=== PATIENT | female | born 1970 | race Caucasian/White ===

== ENCOUNTER 2020-12-24 10:59 | Emergency (ER) | payer BC ==
[2020-12-24 11:17] VITALS: BP 136/84; PULSE 90; RESP 18; TEMP 98
[2020-12-24] MEDS ORDERED: MORPHINE SULFATE 4 MG/ML SYRINGE IM STA (11:33)
--- NOTE | 2020-12-24 12:05 | XR ---
EXAMINATION TYPE: XR ankle complete RT DATE OF EXAM: 12/24/2020 CLINICAL HISTORY: Fall TECHNIQUE: Frontal, lateral and oblique images of the right ankle are obtained. COMPARISON: No prior similar studies are available for comparison. FINDINGS: The ankle mortise is not symmetric and there is a fracture of the distal fibula beginning at the leve l of the tibial plafond and. Bony fragments are seen adjacent to the medial malleolus. There is exten sive surrounding soft tissue swelling and ankle joint effusion. Calcaneal spur is noted. IMPRESSION: The ankle mortise is not symmetric and there is a fracture of the distal fibula beginning at the leve l of the tibial plafond and. Bony fragments are seen adjacent to the medial malleolus. There is exten sive surrounding soft tissue swelling and ankle joint effusion.
--- NOTE | 2020-12-24 12:06 | XR ---
Right leg HISTORY: Trauma and pain Frontal and lateral views of the right leg on 4 images There is an oblique fracture of the distal right fibula within the metadiaphysis with slight displace ment. There is some slight lateral subluxation of the talus in relation to the distal tibia. Small os sific density may be present along the medial malleolus laterally. There is soft tissue swelling pres ent. There is a plantar calcaneal spur. IMPRESSION: Fracture subluxation as described.
--- NOTE | 2020-12-24 12:06 | XR ---
EXAMINATION TYPE: XR foot complete RT DATE OF EXAM: 12/24/2020 CLINICAL HISTORY: Fall TECHNIQUE: Frontal, lateral, and oblique images of the right foot are obtained. COMPARISON: None FINDINGS: There is a distal fibular fracture. Ankle joint effusion is present. Calcaneal spur is noted. IMPRESSION: There is a distal fibular fracture. Ankle joint effusion is present.
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
[2020-12-24] MEDS ORDERED: ACET/COD 300 MG/30 MG STARTER PACK 6 TAB BTL PO STA (13:19)
== END 2020-12-24 13:23 | disposition home or self-care (01) ==
LOC: EC 10:59
DX: S82.891A Other fracture of right lower leg, initial encounter for closed fracture (principal); F32.9 Major depressive disorder, single episode, unspecified; X58.XXXA Exposure to other specified factors, initial encounter; Y92.814 Boat as the place of occurrence of the external cause
CPT/HCPCS: 73590; 73610; 73630; 96372; 29515; 99283; J2270

== ENCOUNTER → 2021-02-26 | Outpatient (CLI) | payer BC ==
--- NOTE | 2021-02-26 14:48 | XR ---
EXAMINATION TYPE: XR ankle limited RT DATE OF EXAM: 02/26/2021 COMPARISON: 12/24/2020 HISTORY: Status post ORIF FINDINGS: Two views of the ankle demonstrate the ankle mortise to be intact and symmetric. Postsurgical change appears in near-anatomic alignment. Calcaneal spur noted. IMPRESSION: 1. Postoperative change in near anatomic alignment.
== END | disposition home or self-care (01) ==
LOC: RADXRMAIN 13:47
PROVIDERS: ATTEND Physician Assistant
DX: Z47.89 Encounter for other orthopedic aftercare (principal); M77.31 Calcaneal spur, right foot

== ENCOUNTER 2021-03-06 11:16 | Day surgery (SDC) | payer BC ==
[2021-03-04 14:52] VITALS: BMI 25.8
[~2021-03-06 11:16] MED LIST: DEXAMETHASONE SOD PHOSPHATE 4 MG/ML 1 ML VIAL IV ONE; LACTATED RINGERS 1,000 ML IV SCH; LIDOCAINE 1% (10MG/ML) FOR IV START INTRADERMA PRN; ONDANSETRON 4 MG/2 ML VIAL IVP ONE; SCOPOLAMINE 1.5MG/72HR PATCH TRANSDERM ONE; ceFAZolin 1,000 MG in SODIUM CHLORIDE 0.9% IRRIGATIO 1,000 ML IRRIGATION PRN
[2021-03-06 12:06] VITALS: RESP 16
[2021-03-06] MEDS ORDERED: MIDAZOLAM 2 MG/2 ML VIAL IV ONE (13:35)
[2021-03-06] MEDS ORDERED: PROPOFOL 10 MG/ML 20 ML VIAL IV ONE (14:08)
[2021-03-06] MEDS ORDERED: fentaNYL (PF) 50 MCG/ML 2 ML AMP ONE (14:08)
[2021-03-06] MEDS ORDERED: LIDOCAINE 1% INJ 10MG/ML (20 ML MDV) ONE (14:08)
[2021-03-06] MEDS ORDERED: MIDAZOLAM 2 MG/2 ML VIAL ONE (14:08)
[2021-03-06] MEDS ORDERED: BUPIVACAINE (PF) 0.25% 30 ML VIAL SQ ONE (14:10)
[2021-03-06] MEDS ORDERED: HYDROmorphone 0.5 MG/0.5 ML SYRINGE IVP PRN (14:38)
[2021-03-06] MEDS ORDERED: HYDROcodone/APAP 5-325MG 1 EACH TAB PO PRN (14:38)
[2021-03-06] MEDS ORDERED: BENZOCAINE/MENTHOL LOZENG 1 EACH LOZENGE MUCOUS MEM PRN (14:38)
[2021-03-06] MEDS ORDERED: ONDANSETRON 4 MG/2 ML VIAL IVP PRN (14:38)
--- NOTE | 2021-03-06 14:49 | P.OP ---
Date of Procedure: 03/06/21 Preoperative Diagnosis: Irritating hardware right ankle status post open reduction internal fixation, retained syndesmotic screws right ankle status post open reduction internal fixation for fracture with syndesmotic injury Postoperative Diagnosis: Same Anesthesia: MAC Pathology: none sent Condition: stable Description of Procedure: BRIEF OPERATIVE NOTE Preoperative Diagnosis: Irritating hardware right ankle status post open reduction internal fixation, retained syndesmotic screws right ankle status post open reduction internal fixation for fracture with syndesmotic injury Postoperative Diagnosis: Same Procedure: Removal of deep hardware right ankle with removal of syndesmotic screws and distal fibula screw Surgeon: Dr. Elena Informatic[employer] Mdm Architect: Chad Dickerson is present throughout the entire the case persistence during positioning, dissection, exposure, visualization, and all crucial elements of the case as well as closure. Anesthesia: General anesthesia Estimated blood loss: Less than 10 mL Tourniquet time: None Specimen: None Complications: None apparent Components implanted: We removed 3 screws from her right ankle, 2 syndesmotic screws and one distal fibula screw which was irritating for her OPERATIVE INDICATIONS The patient had an injury approximately 3 months ago ago when she slipped and fell . She had immediate pain and swelling in her right ankle. She had not had any pain or issues prior to her fall. She underwent open reduction internal fixation due to a displaced distal fibula fracture and syndesmotic injury. She went on to have good healing at her distal fibula and that her syndesmosis and we plan to take out this and his medical screws for her. She is also having significant irritation at the screw heads particularly at the distal most screw head at the fibula. I discussed with her the fact to that removing the hardware may not alleviate symptoms. We will hardware with prevent further problems with the screw sites themselves at the syndesmotic screws. She is interested in having the screws removed. I discussed the risk of bleeding risk and infection risk and need for further surgery risk of decreased loss of motion loss function malunion nonunion hardware failure nerve damage as well as, occasions with surgery were explained. I answered her questions best my ability and she elected proceed with surgical intervention. OPERATIVE SUMMARY After discussing all the risks, patient alternatives and benefits at length, the patient elected to proceed with surgical intervention, signed informed consent, and presented for their procedure. The patient was seen and examined in the preoperative holding area and the surgical site was marked. The patient was given antibiotics and brought to the operating room. The patient was sedated and intubated by anesthesia in standard fashion. The patient was positioned on to the operating room table in a supine position with a pad under her right hip. We were careful to pad any bony prominences and pressure points. We were careful to maintain the patient's cervical spine and good neutral alignment and position throughout. We used C-arm machines to establish union fluoroscopic guidance in AP and lateral positions. We were able to localize the fractures appropriately. The patient was prepped and draped in a normal standard fashion. An appropriate timeout and keystone protocol performed. We were able to proceed with the surgery. The local wound area was infiltrated with local anesthetic. An incision was made over the lateral aspect of the ankle utilizing the prior incision at the distal aspect of the incision. I was able to easily identify the screw heads. The distal most screw was somewhat prominent and was able to be removed examined and found be in total. This significantly decrease the prominence of the hardware at the site. We also identify the syndesmotic screws 2 and they were removed in total. The syndesmosis was checked under live fl uoroscopy and there is no evidence of widening of the syndesmosis or ankle mortise. The remaining hardware is left intact. Was found to be stable. This was confirmed with C-arm guidance. I performed medial and lateral varus and valgus stress at the ankle after fixation was performed and there is no evidence of any widening or displacement of the syndesmosis or the ankle mortise. I do not feel we needed any further fixation. I felt is okay to remove the syndesmotic screws appropriately. We were able to proceed with closure. Deep layers were closed with 2-0 Vicryl subcu tissues closed 2-0 Vicryl and skin was closed with 4-0 nylon. The wound was cleaned and dried and dressed with the appropriate dressing. The patient was gently rolled back onto their hospital bed being careful to maintain their cervical spine and good neutral alignment and position. They were woken up by anesthesia, extubated, and brought to the recovery room in good stable condition. The patient will be able to be discharged from the hospital after appropriate observation due to and for appropriate postoperative care, medical management and monitoring. We will continue to follow them closely about the postoperative course. a plan see her back in the office in approximately 1 week's time or sooner if she is having problems.
[2021-03-06] MEDS: HYDROmorphone 0.5 MG/0.5 ML SYRINGE IVP PRN ×2 (15:01→15:12)
[2021-03-06 15:04] VITALS: TEMP 96.8
[2021-03-06 16:03] VITALS: BP 172/97; PULSE 77
--- NOTE | 2021-03-06 19:15 | FL ---
Fluoroscopy HISTORY: Hardware removal 1 seconds fluoroscopy time supplied to the referring clinician. 2 intraoperative C-arm images docume nt the procedure. See dictated report from orthopedic surgery.
[2021-03-07] MEDS ORDERED: DULoxetine HCL 60 MG CAPSULE.DR PO SCH (09:00)
[2021-03-07] MEDS ORDERED: MULTIVITAMINS, THERA 1 EACH TAB PO SCH (09:00)
[2021-03-07] MEDS ORDERED: CHOLECALCIFEROL 10 MCG (400 IU) TABLET PO SCH (09:00)
== END 2021-03-06 16:17 | disposition home or self-care (01) ==
LOC: OR 11:16
PROVIDERS: ATTEND Orthopaedic Surgery Orthopaedic Surgery of the Spine
DX: S82.891D Other fracture of right lower leg, subsequent encounter for closed fracture with routine healing (principal); W01.0XXD Fall on same level from slipping, tripping and stumbling without subsequent striking against object, subsequent encounter; F41.9 Anxiety disorder, unspecified; Z79.899 Other long term (current) drug therapy
CPT/HCPCS: 20680; 76000; 73600; J2250; J1100; J0690 ×2; J2405; J1170